=== PATIENT | female | born 1955 | race Caucasian/White ===

== ENCOUNTER → 2016-11-16 | Outpatient (CLI) | payer OTHER ==
[2015-06-21 07:26] VITALS: BP 145/76
[~2016-11-16] MED LIST: BIOT1TAB PO; CETI10CA PO; ESCI20TA10 PO; ESTR2TAB PO; ESTR42.53 VG; FLUT1DIS3 IH; HYDR25TA9 PO; MONT10TA6 PO; PANT40TA5 PO; POTA20TA12 PO; VENTOLIN HFA18 GM IH; VITA1TAB19 PO
--- NOTE | 2016-11-16 15:15 | KCIC ---
Bilateral digital screening mammograms with CAD: HISTORY Routine screening COMPARISON Comparison is made to previous examinations dated 09/29/2015 and 07/19/2010. FINDINGS Breast density category C. The skin and nipples show no abnormalities. No abnormal lymph nodes are seen in the axilla. The breast parenchyma shows heterogeneous density. There continues to be a small parenchymal density anterior medially in the right breast seen only on CC view. This is unchanged. There are no new dominant masses, suspicious calcifications or architectural distortions. Biopsy clip is now present at the 12 o'clock position. IMPRESSION No evidence of malignancy. Recommend routine annual mammographic screening. This study was interpreted with the benefit of Computerized Aided Detection (CAD). Mammography is not 100% sensitive in detecting breast cancer. Therefore, a self breast exam and a clinical breast exam are very important. A negative mammogram does not negate a clinically suspicious finding and should not result in a delay in biopsying a clinically suspicious abnormality. BI-RADS category 2: Benign. This patient's information has been entered into a reminder system for the patient to be notified with the results of this examination and a target date for her next mammograms. Electronically signed by: Nicki Hensley MD (Nov 16, 2016 15:13:41)
== END | disposition home or self-care (01) ==
LOC: KCIC MAMMO 13:18
PROVIDERS: ATTEND Internal Medicine Cardiovascular Disease
DX: Z12.31 Encounter for screening mammogram for malignant neoplasm of breast (principal)
CPT/HCPCS: G0202; 77067